=== PATIENT | male | born 1965 ===

== ENCOUNTER 2018-01-23 17:41 | Emergency (ER) | payer OTHER ==
[2018-01-23 18:32] VITALS: BP 122/74; PULSE 61; RESP 16; TEMP 98.4; O2SAT 97
[2018-01-23] MEDS ORDERED: Tdap Vaccine 0.5 ml Vial (10-64 yrs) IM ONE ×2 (19:15→19:23)
[2018-01-23] MEDS ORDERED: Tmp-Smz 800 mg-160 mg DS Tab PO STA (19:15)
[2018-01-23] MEDS ORDERED: Tmp-Smz 800 mg-160 mg DS Tab ONE (19:22)
--- NOTE | 2018-01-23 19:40 | ED PDOC ---
Upper Extremity Pain/Injury Time Seen by Provider: 01/23/18 18:35 Chief Complaint (Nursing): Finger,Hand,&Wrist Chief Complaint (Provider): Left hand injury History Per: Patient History/Exam Limitations: no limitations Onset/Duration Of Symptoms: Days Current Symptoms Are (Timing): Still Present Additional Complaint(s): 52yo male, presents to ED for evaluation of a splinter on the palm of his left hand, which has been present for the past 5 days. Patient states he attempted to remove the splinter by himself without success. He was evaluated by his PMD who referred him to the ER and instructed to have the foreign body removed and get a tetanus booster. He denies any fever, chills, numbness or decreased ROM of his left hand. Past Medical History Reviewed: Historical Data, Nursing Documentation, Vital Signs Vital Signs: Last Vital Signs Temp 98.4 F 01/23/18 18:28 Pulse 61 01/23/18 18:28 Resp 16 01/23/18 18:28 BP 122/74 01/23/18 18:28 Pulse Ox 97 01/23/18 18:28 - Medical History PMH: No Chronic Diseases - Surgical History Surgical History: No Surg Hx - Family History Family History: States: No Known Family Hx - Immunization History Hx Tetanus Toxoid Vaccination: No - Home Medications Home Medications: Ambulatory Orders Medication Instructions Recorded Cephalexin [cephalexin] 500 mg PO QID #28 cap 01/23/18 Sulfamethoxazole/Trimethoprim 2 tab PO BID #28 tab 01/23/18 [Bactrim DS 800 mg-160 mg] - Allergies Allergies/Adverse Reactions: Allergies Allergy/AdvReac Type Severity Reaction Status Date / Time No Known Allergies Allergy Verified 01/23/18 18:28 Review of Systems ROS Statement: Except As Marked, All Systems Reviewed And Found Negative Constitutional: Negative for: Fever, Chills Musculoskeletal: Positive for: Hand Pain (left hand) Neurological: Negative for: Weakness, Numbness Physical Exam - Reviewed Nursing Documentation Reviewed: Yes Vital Signs Reviewed: Yes - Physical Exam Comments: GENERAL APPEARANCE: Patient is awake, alert, oriented x 3, in mild painful distress. SKIN: warm and dry PULMONARY: lungs clear, no rhonchi, no wheezing. CARDIAC: regular rate and rhythm, no murmur, no gallop. ABDOMEN: soft, nontender. EXTREMITIES: no deformity, full range of motion, no tenderness. Healed puncture wound to center of left palm. No visible foreign body noted. Small amount of yellow, purulent discharge noted from wound. No surrounding erythema or edema. Capillary refill < 2 seconds. - ECG O2 Sat by Pulse Oximetry: 97 (RA) Pulse Ox Interpretation: Normal Medical Decision Making Medical Decision Making: Impression: Healing wound to left hand Plan: -- Keflex 500 mg PO -- TDAP Booster -- BActrim 1 tab PO -- Patient and family notified that since the wound is old and there is no visible foreign body noted on exam, ER provider cannot attempt to remove the foreign body. Also informed since the injury is more than 24 hours old, immediate intervention is not indicated. Patient offered XR of hand, which he declined. Advised to follow up with hand specialist in 1-2 days without fail. Advised to take medication as prescribed. Return to the emergency room at any time for any new or worsening symptoms. Patient states he fully agrees with and understands discharge instructions. States that he agrees with the plan and disposition. Verbalized and repeated discharge instructions and plan. I have given the patient opportunity to ask any additional questions. Scribe Attestation: Documented by Katrina Murrieta acting as a scribe for Kalee Youssef PA-C. Provider Attestation: All medical record entries made by the Scribe were at my direction and personally dictated by me. I have reviewed the chart and agree that the record accurately reflects my personal performance of the history, physical exam, medical decision making, and the department course for this patient. I have also personally directed, reviewed, and agree with the discharge instructions and disposition. Disposition - Clinical Impression Clinical Impression: Foreign body of hand, left, Infected hand - Patient ED Disposition Is Patient to be Admitted: No Counseled Patient/Family Regarding: Diagnosis, Need For Followup, Rx Given - Disposition Referrals: Jimmie Garcia MD [Staff Provider] - Disposition: Routine/Home Disposition Time: 19:30 Condition: STABLE Additional Instructions: Thank you for letting us take care of you today. You were treated for FB L hand. The emergency medical care you received today was directed at your acute symptoms. If you were prescribed any medication, please fill it and take as directed. It may take several days for your symptoms to resolve. Return to the Emergency Department if your symptoms worsen, do not improve, or if you have any other problems. Please contact hand specialist in 2 days for re-evaluation and follow up. Bring any paperwork you were given at discharge with you along with any medications you are taking to your follow up visit. Our treatment cannot replace ongoing medical care by a primary care provider (PCP) outside of the emergency department. Thank you for allowing the [facility] team to be part of your care today. Prescriptions: Cephalexin [cephalexin] 500 mg PO QID #28 cap Sulfamethoxazole/Trimethoprim [Bactrim DS 800 mg-160 mg] 2 tab PO BID #28 tab Instructions: Wound Infection, Foreign Body in Skin (DC) Forms: [employer] (Irish), [facility] ED School/Work Excuse Print Language: TAIWANESE - PA / EGG [employer]UC[employer] / Resident Statement /DO has reviewed & agrees with the documentation as recorded.
== END 2018-01-23 18:56 | disposition home or self-care (01) ==
LOC: H.ER 17:41
DX: B99.8 Other infectious disease (principal); M79.5 Residual foreign body in soft tissue